=== PATIENT | female | born 1960 ===

== ENCOUNTER 2017-11-25 06:51 | Day surgery (SDC) | payer BC ==
[2017-11-25] MEDS ORDERED: ceFAZolin 2 GM PREMIX (*) 2 GM/50 ML BAG IVPB ONE (06:56)
[2017-11-25] MEDS ORDERED: Lidocaine 2% PF * 5 ML VIAL ONE (08:13)
[2017-11-25] MEDS ORDERED: Propofol* 10 MG/ML 20 ML BTL IV PUSH ONE (08:13)
[2017-11-25] MEDS ORDERED: Midazolam* 1 MG/ML 2 ML VIAL (2 MG) ONE (08:14)
[2017-11-25] MEDS ORDERED: fentaNYL* 50 MCG/ML 2 ML VIAL (100 MCG VIAL) ONE (08:14)
[2017-11-25] MEDS ORDERED: Bupivacaine 0.5% PF 10 ML VIAL INJ ONE (08:39)
[2017-11-25] MEDS ORDERED: Clindamycin 900 MG IVPREMIX(* 900 MG/50 ML SDV IV ONE (09:09)
[2017-11-25] MEDS ORDERED: Ketorolac INJ* 30 MG/ML 1 ML VIAL ONE (09:43)
[2017-11-25] MEDS ORDERED: Metoclopramide IV* 5 MG/ML 2 ML VIAL ONE (09:43)
[2017-11-25] MEDS ORDERED: Ondansetron INJ* 2 MG/ML VIAL ONE (09:43)
[2017-11-25] MEDS ORDERED: Dexamethasone IV* 4 MG/ML 1 ML (4 MG) ONE (09:43)
[2017-11-25] MEDS ORDERED: fentaNYL* 50 MCG/ML 2 ML VIAL (100 MCG VIAL) IV PRN (09:52)
[2017-11-25] MEDS ORDERED: DiMENhydriNATE IV* 50 MG/ML VIAL IV PUSH PRN (09:52)
[2017-11-25] MEDS ORDERED: Naloxone* 0.4 MG/ML 1 ML VIAL IV PRN (09:52)
[2017-11-25] MEDS ORDERED: Acetaminophen TAB* 325 MG PO PRN (09:52)
[2017-11-25] MEDS ORDERED: oxyCODONE TAB* 5 MG TAB ONE (11:05)
[2017-11-25 11:36] VITALS: BP 132/88
--- NOTE | 2017-11-25 23:58 | OP ---
DATE OF OPERATION: 11/25/17 - [facility] DATE OF : 64 ATTENDING SURGEON: Adolph Rm MD IT TECHNICAL SUPPORT SPECIALIST: BERRY [place] PRE-OP DIAGNOSIS: Left hallux valgus. POST-OP DIAGNOSIS: Left hallux valgus. OPERATIVE PROCEDURE: Left modified [place] with TightRope placement. DESCRIPTION OF PROCEDURE: The patient was taken to the operating room where longitudinal incision was made in the dorsal first leg space. The adductor tendon was reflected away from the lateral border of the sesamoid and a capsulotomy over the dorsal aspect of the sesamoid was performed. Transverse metatarsal ligament incised as well. The patient was quite flexible and had passive correction of the MTP joint convalescence at this point. The longitudinal medial incision was made over the medial eminence with exposure of the capsule. Transverse capsulotomy was made at the level of the MTP joint and then carried proximally over the dorsal aspect, we reflected this plantarward and then resected the medial eminence with a microsagittal saw. The ANGE was corrected easily as well, so a TightRope was placed from the medial first metatarsal just proximal to the capsulotomy and then over to the second metatarsal. We tightened the TightRope down firmly against the second metatarsal with the IM angle corrected and then tied the TightRope. We then resected redundant capsule to medial eminence repairing this with 0 Vicryl suture. Both wounds were then irrigated and closed with 2-0 Vicryl and nylon for the skin and a compression dressing applied. [id number] #: [id number] [facility]
== END 2017-11-25 11:59 | disposition home or self-care (01) ==
LOC: OR 06:51
PROVIDERS: ATTEND Orthopaedic Surgery
DX: M20.12 Hallux valgus (acquired), left foot (principal); Z87.891 Personal history of nicotine dependence; F41.9 Anxiety disorder, unspecified
CPT/HCPCS: 88304; 88311; A9270-GY; C1713; J0690; J1100; J1885; J2250; J2405; J2704; J2765; J3010